=== PATIENT | male | born 1985 | race African-American/Black ===

== ENCOUNTER 2021-10-26 10:11 | Inpatient (IN) ==
[2021-10-26] MEDS ORDERED: SODIUM CHLORIDE 0.9% 1,000 ML IV STA (10:28)
[2021-10-26 11:38] LABS: Calcium 10.9 MG/DL (8.5-10.1); Osmolality,Calculated 282.4 MOS/KG (273-304); Potassium 4.1 MMOL/L (3.5-5.1)
[2021-10-26] MEDS ORDERED: GLUCAGON 1 MG VIAL IM PRN (12:10)
[2021-10-26] MEDS ORDERED: LACTATED RINGERS 2,000 ML IV ONE (12:10)
[2021-10-26] MEDS ORDERED: DEXTROSE 10% 250 ML BAG IV PRN (12:15)
[2021-10-26 12:17] LABS: Basophils % 0.2 % (0.0-0.8); Eosinophils % 0.1 % (0.00-10.9); Hematocrit 46.1 VOL% (42.0-52.0); Hemoglobin 16.8 GM/DL (14.0-18.0); Immature Granulocytes % 0.5 %; Immature Granulocytes Absolute 0.09 #; Lymphocytes # 3.7 10*3/uL (1.4-4.0); Mean Corpuscular HGB Conc 36.4 GM/DL (32-36); Mean Platelet Volume 10.5 FL (9.6-12.0); Monocytes # 1.4 10*3/uL (0.11-0.8); Monocytes % 7.4 % (1.7-12.7); Neutrophils % 71.8 % (38.7-73.9); Platelet Count 446 T/CUMM (130-400); Red Blood Count 5.69 MC/CUMM (3.8-5.5); Red Cell Distribution Width 12.4 % (9.3-17.3); White Blood Count 18.3 T/CUMM (4-12)
[2021-10-26 12:43] LABS: Thyroid Stimulating Hormone 1.89 uIU/ml (0.358-3.74)
[2021-10-26] MEDS: PANTOPRAZOLE 40 MG TABLET PO SCH (12:44)
[2021-10-26 13:02] LABS: Alanine Aminotransferase 72 U/L (16-61); Albumin > 5.0 G/DL (3.4-5.0); Alkaline Phosphatase 137 U/L (45-117); Aspartate Amino Transferase 44 U/L (0-37); Total Protein 9.8 G/DL (6.4-8.2)
[2021-10-26] MEDS: LACTATED RINGERS 1,000 ML IV SCH ×2 (14:25→20:49)
[2021-10-26 15:28] LABS: Calcium 9.5 MG/DL (8.5-10.1); Osmolality,Calculated 281.5 MOS/KG (273-304)
[2021-10-26] MEDS: ACETAMINOPHEN 325 MG TABLET PO PRN (20:48)
[2021-10-26] MEDS: HEPARIN 5,000 UNIT/1 ML VIAL SUBCUT SCH (20:49)
[2021-10-26 21:41] LABS: Calcium 8.9 MG/DL (8.5-10.1); Osmolality,Calculated 282.4 MOS/KG (273-304); Potassium 3.1 MMOL/L (3.5-5.1)
[2021-10-27] MEDS: LACTATED RINGERS 1,000 ML IV SCH ×3 (03:24→21:01)
[2021-10-27 03:31] LABS: Basophils # 0.1 10*3/uL (0.0-0.2); Basophils % 0.5 % (0.0-0.8); Eosinophils # 0.2 10*3/uL (0.0-0.87); Eosinophils % 1.5 % (0.00-10.9); Hematocrit 37.1 VOL% (42.0-52.0); Hemoglobin 13.4 GM/DL (14.0-18.0); Immature Granulocytes % 0.3 %; Immature Granulocytes Absolute 0.03 #; Lymphocytes # 3.8 10*3/uL (1.4-4.0); Lymphocytes % 33.7 % (21.2-54.2); Mean Corpuscular HGB Conc 36.1 GM/DL (32-36); Mean Corpuscular Volume 82.1 FL (87-102); Monocytes # 0.8 10*3/uL (0.11-0.8); Monocytes % 6.9 % (1.7-12.7); Neutrophils % 57.1 % (38.7-73.9); Platelet Count 325 T/CUMM (130-400); Red Blood Count 4.52 MC/CUMM (3.8-5.5); Red Cell Distribution Width 12.4 % (9.3-17.3); White Blood Count 11.3 T/CUMM (4-12)
[2021-10-27] MEDS: ONDANSETRON 4 MG/2 ML VIAL IV PRN ×3 (03:39→21:03)
[2021-10-27] MEDS: ACETAMINOPHEN 325 MG TABLET PO PRN ×2 (03:39→21:02)
[2021-10-27 03:53] LABS: Albumin 3.5 G/DL (3.4-5.0); Bilirubin,Total 1.2 MG/DL (0.20-1.00); Calcium 8.7 MG/DL (8.5-10.1); Osmolality,Calculated 285.2 MOS/KG (273-304); Potassium 3.2 MMOL/L (3.5-5.1); Total Protein 6.9 G/DL (6.4-8.2)
[2021-10-27 04:05] LABS: Calcium 8.6 MG/DL (8.5-10.1); Osmolality,Calculated 287.1 MOS/KG (273-304); Potassium 3.1 MMOL/L (3.5-5.1)
[2021-10-27] MEDS: HEPARIN 5,000 UNIT/1 ML VIAL SUBCUT SCH ×2 (08:06→21:02)
[2021-10-27] MEDS: PANTOPRAZOLE 40 MG TABLET PO SCH (08:06)
[2021-10-27] MEDS: POTASSIUM CHLORIDE RIDER 10 MEQ/100 ML PREMIX IV PRN ×2 (08:06→09:52)
[2021-10-27 09:59] LABS: Calcium 9.2 MG/DL (8.5-10.1); Osmolality,Calculated 281.1 MOS/KG (273-304); Potassium 3.3 MMOL/L (3.5-5.1)
[2021-10-27] MEDS ORDERED: POTASSIUM CHLORIDE 20 MEQ TABLET PO ONE ×2 (11:00→19:30)
[2021-10-27] MEDS ORDERED: PROMETHAZINE INJ 12.5 MG in SODIUM CHLORIDE 0.9% 50 ML IV PRN (14:07)
[2021-10-27] MEDS: NICOTINE 21 MG/24 HR PATCH TRANSDERM SCH (14:45)
[2021-10-27] MEDS ORDERED: PROMETHAZINE INJ 12.5 MG in SODIUM CHLORIDE 0.9% 50 ML IV ONE (15:00)
[2021-10-27 18:04] LABS: Barbiturates Screen,Urine Negative (Negative); Benzodiazepines Screen,Urine Negative (Negative); Cannabinoid Screen,Urine Positive (Negative); Opiate Screen,Urine Negative (Negative); Phencyclidine Screen,Urine Negative (Negative)
[2021-10-28] MEDS: ACETAMINOPHEN 325 MG TABLET PO PRN (01:10)
[2021-10-28] MEDS: ONDANSETRON 4 MG/2 ML VIAL IV PRN (01:10)
[2021-10-28 05:46] LABS: Basophils # 0.1 10*3/uL (0.0-0.2); Eosinophils # 0.2 10*3/uL (0.0-0.87); Eosinophils % 2.3 % (0.00-10.9); Hematocrit 37.8 VOL% (42.0-52.0); Hemoglobin 13.2 GM/DL (14.0-18.0); Immature Granulocytes % 0.3 %; Immature Granulocytes Absolute 0.02 #; Lymphocytes # 3.7 10*3/uL (1.4-4.0); Lymphocytes % 53.3 % (21.2-54.2); Mean Corpuscular HGB Conc 34.9 GM/DL (32-36); Mean Corpuscular Volume 83.1 FL (87-102); Mean Platelet Volume 10.7 FL (9.6-12.0); Monocytes # 0.6 10*3/uL (0.11-0.8); Monocytes % 8.4 % (1.7-12.7); Neutrophils % 34.7 % (38.7-73.9); Platelet Count 314 T/CUMM (130-400); Red Blood Count 4.55 MC/CUMM (3.8-5.5); Red Cell Distribution Width 12.2 % (9.3-17.3); White Blood Count 6.9 T/CUMM (4-12)
[2021-10-28 06:05] LABS: Calcium 9.1 MG/DL (8.5-10.1)
[2021-10-28 06:07] LABS: Eosinophils 1 % (0-10); Lymphocytes 56 % (20-55); Platelet Estimate Normal; Total Cells Counted 100
[2021-10-28 06:08] LABS: Albumin 3.5 G/DL (3.4-5.0); Bilirubin,Direct 0.24 MG/DL (0.0-0.20); Bilirubin,Indirect 1.2 MG/DL (0.0-1.0); Bilirubin,Total 1.4 MG/DL (0.20-1.00); Total Protein 7.1 G/DL (6.4-8.2)
[2021-10-28] MEDS: LACTATED RINGERS 1,000 ML IV SCH (06:44)
[2021-10-28 08:06] VITALS: BP 121/70
[2021-10-28] MEDS: NICOTINE 21 MG/24 HR PATCH TRANSDERM SCH (09:12)
[2021-10-28] MEDS: PANTOPRAZOLE 40 MG TABLET PO SCH (09:12)
[2021-10-28] MEDS: HEPARIN 5,000 UNIT/1 ML VIAL SUBCUT SCH (09:12)
== END 2021-10-28 11:06 | disposition home or self-care (01) | DRG 683 ==
LOC: EDUNIT# → EDBD → N.ED 10:11 → N.EDINP 12:10 → SUATTDRO 12:10 → N.EDINP 13:15 → N.5E 13:36
PROVIDERS: ADMIT Internal Medicine; ATTEND Internal Medicine